=== PATIENT | female | born 1955 | race American Indian/Alaskan Native ===

== ENCOUNTER 2017-11-24 09:25 | Outpatient (CLI) | payer OTHER ==
--- NOTE | 2017-11-24 16:15 | Mammography Report ---
BILATERAL DIGITAL SCREENING MAMMOGRAM with CAD: 11/24/17 09:25:00 CLINICAL: Routine screening. COMPARISON:06/18/16 FINDINGS: The breasts are heterogeneously dense, which may obscure small masses. No mass, architectural distortion or suspicious calcifications. IMPRESSION: No mammographic evidence of malignancy. BI-RADS CATEGORY: 1 - - Negative RECOMMENDATION: Routine mammographic screening in one year. COMMENT: Patient follow-up letters are generated by our [employer] application.
== END 2017-11-24 09:26 | disposition home or self-care (01) ==
LOC: SPVWC 09:25
PROVIDERS: ATTEND Family Medicine
DX: Z12.31 Encounter for screening mammogram for malignant neoplasm of breast (principal)
CPT/HCPCS: 77067

== ENCOUNTER 2020-07-10 09:49 | Outpatient (CLI) | payer MEDICARE ==
--- NOTE | 2020-07-10 13:55 | Mammography Report ---
DIGITAL SCREENING MAMMOGRAM WITH CAD, 07/10/2020 INDICATION: Routine screening mammography. TECHNIQUE: Digital bilateral 2D mammography was obtained in the craniocaudal and mediolateral obliq ue projections. This examination was interpreted with the benefit of Computer-Aided Detection analysi s. COMPARISON: Prior mammogram 11/24/2017 FINDINGS: Breast Density: The breasts are heterogeneously dense, which may obscure small masses. There is no evidence of dominant mass, suspicious calcifications or architectural distortion in the l eft breast. There are new calcifications with linear distribution seen in the 9:00 position of the ri ght breast, posterior depth, measuring up to 1.5 cm in extent. IMPRESSION: 1. New calcifications in the right breast require further evaluation with magnification views. Follow up recommendation: Special View: Mag BI-RADS Category 0: Incomplete. Needs additional imaging evaluation and/or prior mammograms for denisha rison. A "normal" or negative report should not discourage follow up or biopsy of a clinically significant f inding. A written summary of these findings will be mailed to the patient. The patient will be entered into a mammography reporting system which will generate a reminder letter for the patient's next appointmen t at the appropriate interval. The [employer] recommends yearly mammograms starting at age 40 and continuing as l niko as a woman is in good health. Breast MRI is recommended for women with an approximate 20-25% or greater lifetime risk of breast cancer, including women with a strong family history of breast or ova rita cancer or who have been treated for Hodgkin's disease. Signer Name: Donita Tony MD Signed: 07/10/2020 1:51 PM Workstation Name: [id number]
== END 2020-07-10 09:50 | disposition home or self-care (01) ==
LOC: SPVWC 09:49
PROVIDERS: ATTEND Family Medicine
DX: Z12.31 Encounter for screening mammogram for malignant neoplasm of breast (principal)
CPT/HCPCS: 77067